=== PATIENT | male | born 1945 | race Caucasian/White ===

== ENCOUNTER → 2024-04-09 10:35 | Outpatient (BNVA) | payer MEDICARE, SELFPAY | PROVIDERS: Family Provider Nurse Practitioner Family; PCP Nurse Practitioner Family; Visit Provider Nurse Practitioner Family | DX: I10 Essential (primary) hypertension (principal); R60.9 Edema, unspecified; R53.83 Other fatigue | CPT/HCPCS: 80053; 80061; 83880; 84443; 85025 ==

== ENCOUNTER 2024-10-01 12:13 | Outpatient (CLI) | payer MEDICARE, SELFPAY ==
--- NOTE | 2024-10-01 12:30 | CT_ITS ---
WS: [id number] CT chest wo/w con [id number] HISTORY: J44.9 - Chronic obstructive pulmonary disease, unspecified TECHNIQUE: Axial imaging performed through the thorax. Coronal and sagittal reformats are submitted. All CT scans at [facility] use at least one of these dose optimization techniques: automated exposure control; mA and/or kV adjustment per patient size (includes targeted exams where dose is matched to clinical indication); or iterative reconstruction. CONTRAST: Omnipaque 350; 100 mL IV. DLP: 603.78 mGy.cm COMPARISON: None available. Lungs and central airway: Marked hyperinflation with emphysema. Volume loss and consolidation involving the RIGHT upper lobe. Consolidation in the RIGHT upper lobe abuts the pleura and also extends posteriorly to the central mediastinum. There are a few small cystic areas or cavitations present within the consolidation. RIGHT middle and RIGHT lower lobes are well aerated. LEFT lung is hyperinflated with no pneumonia. Pleura: No pleural effusions. Heart and pericardium: Normal size heart with no pericardial effusion. Mediastinum and abdoul: No mediastinum or hilar adenopathy. Vessels: Mild scattered atherosclerotic plaque within the aortic arch. Coronary artery calcifications. Pulmonary artery size is normal. Chest wall and lower neck: No soft tissue masses. Upper abdomen: Small hiatal hernia. Hepatic cysts. The largest in the caudate measures 1.6 cm. No adrenal mass. Visualized liver and pancreas and spleen are negative. Atherosclerotic plaque in the celiac axis and proximal SMA. Osseous structures: Mild increase in thoracic kyphosis. Mild osteopenia. Mild anterior wedging of T10. Remote RIGHT seventh rib fracture with nonunion. CT/CT chest wo/w con [id number] IMPRESSION: 1. Dense mixed consolidation RIGHT upper lobe involving the lung and pleura wi th volume loss. There are a few small cavitary lesions present within the conso lidation. No prior studies for comparison but this is most likely pneumonia. No obstructing bronchial lesion identified. Recommend continued evaluation for cl earance to exclude neoplasm. 2. No mediastinal or hilar adenopathy. 3. Advanced emphysema. 4. Hepatic cysts. 5. Atherosclerosis thoracic aorta, celiac axis and SMA.
[2024-10-01 12:47] LABS: Blood Urea Nitrogen 20 mg/dL (8-23)
[2024-10-01] MEDS: iohexol 350 mg/mL 500 mL Btl (per mL) IV (12:58)
== END 2024-10-01 12:14 | disposition home or self-care (01) ==
LOC: RAD 12:18
PROVIDERS: PCP Nurse Practitioner Family; Visit Provider Nurse Practitioner Family
DX: J44.9 Chronic obstructive pulmonary disease, unspecified (principal); J18.1 Lobar pneumonia, unspecified organism; R91.8 Other nonspecific abnormal finding of lung field; R91.1 Solitary pulmonary nodule; J43.8 Other emphysema; K76.89 Other specified diseases of liver; I70.0 Atherosclerosis of aorta; I25.10 Atherosclerotic heart disease of native coronary artery without angina pectoris; K44.9 Diaphragmatic hernia without obstruction or gangrene; I70.8 Atherosclerosis of other arteries; M40.294 Other kyphosis, thoracic region; M85.80 Other specified disorders of bone density and structure, unspecified site; S22.31XK Fracture of one rib, right side, subsequent encounter for fracture with nonunion; X58.XXXD Exposure to other specified factors, subsequent encounter; S22.070A Wedge compression fracture of T9-T10 vertebra, initial encounter for closed fracture; X58.XXXA Exposure to other specified factors, initial encounter
CPT/HCPCS: 71270; 82565; 84520

== ENCOUNTER 2024-12-04 09:37 | Outpatient (CLI) | payer MEDICARE, SELFPAY ==
--- NOTE | 2024-12-04 09:43 | CT_ITS ---
WS: [id number] CT chest wo con [id number] HISTORY: LOBAR PNEUMONIA/NICOTINE DEPENDENCE/EMPHYSEMA TECHNIQUE: Axial imaging performed through the thorax. Coronal and sagittal reformats are submitted. All CT scans at [facility] use at least one of these dose optimization techniques: automated exposure control; mA and/or kV adjustment per patient size (includes targeted exams where dose is matched to clinical indication); or iterative reconstruction. CONTRAST: Omnipaque 350; 100 mL IV. DLP: 321.72 mGy.cm COMPARISON: 10/01/2024 Lungs and central airway: Marked pulmonary hyperexpansion from centrilobular emphysema. Volume loss RIGHT upper lobe with shift of the mediastinal structures to the RIGHT. Dense opacification with cavitations in the RIGHT upper lobe extending to the pleura. Air bronchograms are present and bronchiectasis. Mild pleural thickening along the short fissure. No additional pulmonary nodule. No mass. Frothy secretions remain within the distal trachea extending into the proximal bronchi. Pleura: Normal. No pleural effusion. Heart and pericardium: Normal size heart with no pericardial effusion. Mediastinum and abdoul: No mediastinum or hilar adenopathy. Vessels: Mild atherosclerosis aorta. Normal size pulmonary artery. Chest wall and lower neck: No soft tissue masses. Upper abdomen: Suprarenal aortic calcifications. No adrenal mass. Reidentified is the stable low-attenuation mass in the caudate lobe measuring 14 mm. There is an additional low-attenuation liver nodule measuring 11 mm posterior to the gallbladder. Osseous structures: Mild anterior wedging of T10. CT/CT chest wo con [id number] IMPRESSION: 1. Dense consolidation with volume loss RIGHT upper lobe with central cavitati ons. Not significantly progressed or improved since the prior examination of 10/01/2024. If this has not undergone bronchoscopy, bronchoscopy should be consider ed to rule out neoplasm versus pneumonia. 2. No mediastinal or hilar adenopathy. 3. Severe emphysema. 4. Frothy secretions in the trachea and central bronchi. 5. New posterior LEFT rib fractures, fourth and fifth ribs. Nonunion of the fi fth rib. 6. 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 Please note thi s was described as seventh rib on the prior exam. 7. Hepatic cysts. 8. No adrenal mass.
== END 2024-12-04 09:38 | disposition home or self-care (01) ==
LOC: RAD 09:40
PROVIDERS: PCP Nurse Practitioner Family; Visit Provider Internal Medicine
DX: J18.1 Lobar pneumonia, unspecified organism (principal); R91.8 Other nonspecific abnormal finding of lung field; F17.200 Nicotine dependence, unspecified, uncomplicated; J43.2 Centrilobular emphysema; R55 Syncope and collapse; R93.89 Abnormal findings on diagnostic imaging of other specified body structures; S22.42XA Multiple fractures of ribs, left side, initial encounter for closed fracture; S22.31XK Fracture of one rib, right side, subsequent encounter for fracture with nonunion; X58.XXXA Exposure to other specified factors, initial encounter; K76.89 Other specified diseases of liver; J47.9 Bronchiectasis, uncomplicated; J92.9 Pleural plaque without asbestos; I70.0 Atherosclerosis of aorta; I70.8 Atherosclerosis of other arteries; R93.2 Abnormal findings on diagnostic imaging of liver and biliary tract; R93.5 Abnormal findings on diagnostic imaging of other abdominal regions, including retroperitoneum
CPT/HCPCS: 71250

== ENCOUNTER → 2024-12-20 09:43 | Outpatient (BNVA) | payer MEDICARE, SELFPAY | PROVIDERS: PCP Nurse Practitioner Family; Visit Provider Nurse Practitioner Family | DX: I10 Essential (primary) hypertension (principal); R53.83 Other fatigue | CPT/HCPCS: 80053; 80061; 85025 ==

== ENCOUNTER → 2025-02-06 14:37 | Outpatient (BNVA) | payer MEDICARE, SELFPAY | PROVIDERS: PCP Nurse Practitioner Family; Referring Provider Internal Medicine; Visit Provider Internal Medicine | DX: R06.09 Other forms of dyspnea (principal); I10 Essential (primary) hypertension; J44.9 Chronic obstructive pulmonary disease, unspecified; Z72.0 Tobacco use; Z79.01 Long term (current) use of anticoagulants; R07.9 Chest pain, unspecified; R55 Syncope and collapse; R06.02 Shortness of breath | CPT/HCPCS: 93005; 99204 ==

== ENCOUNTER 2025-03-08 08:05 | Outpatient (CLI) | payer MEDICARE, SELFPAY ==
--- NOTE | 2025-03-08 | ECG_ITS ---
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 Interpretive Statements LEXISCAN: Procedure: At the baseline, the blood pressure was 151/70mmHg with a heart rate of 64 bpm. The electrocardiogram showed normal sinus rhythm, normal axis with borderline horizontal ST depressions in the inferior leads. The Lexiscan was infused over a period of 20 seconds. A total of 0.4 mg of Lexiscan was infused. The stress phase was continued for a total of 5 minutes. Heart rate was at the end of stress phase was 76 bpm and a blood pressure of 142/71 mmHg. The EKG at the peak infusion revealed normal sinus rhythm with no significant ST-T wave changes. Sestamibi was injected 20 seconds after the Lexiscan infusion. Blood pressure at the end of recovery phase was 149/70 mmHg with a heart rate of 80 bpm. Conclusion: 1. Normal EKG response to Lexiscan infusion 2. No Lexiscan induced chest pain or cardiac arrhythmia. 3. Normal blood pressure and heart rate response. 4. Sestamibi/sestamibi perfusion scan pending; see separate report. Electronically Signed On 03-16-2025 23:56:24 CDT by Venancio Metz M.D. [email or web address]
[2025-03-08 08:32] VITALS: BMI 21.7
--- NOTE | 2025-03-08 08:36 | NMCV_ITS ---
NM savage perf SPECT r/s* [id number] Carlos Wilson Age: 79 Gender: M : 1945 Exam Date: 03/08/2025 09:13 Ordering Phys: Venancio Metz M.D ([email or web address]) Technologist: BRINDA John Exam Location: [facility] Indications: cp STRESS TEST [facility] IMAGE PROTOCOL Rest/Stress 1 Lexiscan Day Radiopharmaceutical Dose (mCi) Administration Site Administered by Rest: Tc-99m 10.7 IV BRINDA Shanks Sestamibi Stress:Tc-99m 32.7 IV BRINDA John Sestamijag Rest: 08-Mar-2025 60 Discovery 630 Stress: 08-Mar-2025 30 Discovery 630 0.4mg Lexiscan. Images obtained in supine and prone position. SPECT RESULTS Technical Quality: Good Raw Data Analysis: Normal Image Corrections: No attenuation or motion correction applied Summed Stress Score: 0 Summed Rest Score: 0 Summed Difference Score: 0 PERFUSION FINDINGS SPECT images demonstrate homogeneous tracer distribution throughout the myocardium. FUNCTIONAL RESULTS (calculated via Gated SPECT) Stress Image LV EF (%): 60 Stress EDV (mL):80 TID: 1 Stress ESV (mL):32 FUNCTIONAL FINDINGS: There is normal left ventricular systolic function. IMPRESSIONS 1. Normal myocardial perfusion imaging with no evidence of ischemia. 2. LV systolic function is normal Venancio Metz MD (Electronically Signed) Final Date: 10 March 2025 10:15 S
[2025-03-08 09:56] VITALS: BP 149/70; PULSE 76
--- NOTE | 2025-03-08 13:30 | USCV_ITS ---
Carlos Wilson Age: 79 Gender: M : 1945 Exam Date: 03/08/2025 08:50 Ordering Phys: Venancio Metz M.D ([email or web address]) Technologist: CRISTIAN Exam Location: [facility] [place] Indication: SoB BP: 102 / 60 HR: 58 Rhythm: Sinus Technical Quality: Adequate MEASUREMENTS (Male / Female) Normal Values 2D ECHO LV Diastolic Diameter PLAX 4.4 cm 4.2 - 5.9 / 3.9 - 5.3 cm IVS Diastolic Thickness 1.2 cm 0.6 - 1.0 / 0.6 - 0.9 cm IVS Systolic Thickness 1.6 cm LVPW Diastolic Thickness 1.5 cm 0.6 - 1.0 / 0.6 - 0.9 cm LVPW Systolic Thickness 1.2 cm LVOT Diameter 1.9 cm LV Ejection Fraction 2D Teich 56.9 % LV Ejection Fraction MOD 4C 61.6 % LV Ejection Fraction MOD 2C 59.6 % LV Ejection Fraction 2C AL 55.5 % LA Diameter 2.5 cm RA Systolic Volume 4C AL 27.9 ml RA Systolic Volume 4C MOD 27.0 ml LA Sys Volume AL 25.1 cm cubed LA Sys Volume Index AL 13.4 cm cubed/m squared Aorta at Sinotubular Diameter 2.4 cm IVC Diameter 1.4 cm M-MODE LA Ao Ratio MM 1.2 AV Cusp Separation MM 1.4 cm DOPPLER AV Peak Velocity 138.0 cm/s LVOT Peak Velocity 78.0 cm/s AV Area Cont Eq vti 1.7 cm squared AV Area Cont Eq pk 1.6 cm squared MV Peak Velocity 90.0 cm/s MV Area PHT 4.1 cm squared Mitral E to A Ratio 0.8 TR Peak Velocity 72.0 cm/s TR Peak Gradient 2.1 mmHg TV Peak E Velocity 79.0 cm/s PV Peak Velocity 104.0 cm/s FINDINGS Left Ventricle Normal left ventricular size and systolic function, EF 50-55%. No regional wall motion abnormalities. Grade 1 diastolic dysfunction Right Ventricle Normal in size and function Right Atrium Normal in size Left Atrium Normal in size Mitral Valve Moderate mitral annular calcification. Trace mitral regurgitation. Aortic Valve Aortic valve is thickened and calcified. No significant stenosis or regurgitation. Tricuspid Valve Insufficient TR jet to calculate RVSP Pulmonic Valve Not well visualized Pericardium Normal Aorta Normal in size IVC Appears to be normal CONCLUSIONS LV systolic function is normal with EF of 50-55% Grade 1 diastolic dysfunction Trace mitral regurgitation No comparison studies are available. Venancio Metz MD (Electronically Signed) Final Date: 20 March 2025 09:57 S
== END 2025-03-08 08:06 | disposition home or self-care (01) ==
PROVIDERS: PCP Nurse Practitioner Family; Visit Provider Internal Medicine
DX: R06.02 Shortness of breath (principal); R55 Syncope and collapse; I51.89 Other ill-defined heart diseases; I34.0 Nonrheumatic mitral (valve) insufficiency
CPT/HCPCS: 78452; 93017; 93306; A9500; J2785